=== PATIENT | female | born 1950 | race Caucasian/White ===

== ENCOUNTER 2019-11-04 09:09 | Outpatient (CLI) | payer MEDICARE, SELFPAY ==
--- NOTE | ~2019-11-04 | XR_ITS ---
EXAMINATION: XR abdomen/kub 1V DATE: 11/04/2019 09:32 INDICATION: Hydronephrosis with renal and ureteral calculus obstruction. TECHNIQUE: A supine view of the abdomen was obtained. COMPARISON: CT abdomen and pelvis 10/13/2018, abdomen radiograph 05/25/2019 FINDINGS: There are no dilated loops of bowel. There are phleboliths in the pelvis. IMPRESSION: 1. No visible nephrolithiasis. Reviewed, dictated and finalized at location A. RDS OFFICER
== END 2019-11-04 09:10 | disposition home or self-care (01) ==
LOC: ANHIMG 09:16
PROVIDERS: PCP Pediatrics; Visit Provider Urology
DX: N13.2 Hydronephrosis with renal and ureteral calculous obstruction (principal)
CPT/HCPCS: 74018

== ENCOUNTER 2019-11-08 17:38 | Inpatient (IN) | payer MEDICARE, SELFPAY ==
--- NOTE | ~2019-11-08 | XR_ITS ---
EXAMINATION: XR retrograde pyelo w/stent RT DATE: 11/09/2019 14:14 INDICATION: Right internal ureteral stent placement TECHNIQUE: Fluoroscopic images from a right internal ureteral stent placement are submitted for dorita yan 29 of fluoroscopy time. FINDINGS: There is a right double-J internal ureteral stent projecting in expected position, with proximal Fitzwilliam loop at the level of the renal pelvis and distal loop in the pelvis within the bladder lumen. IMPRESSION: 1. Right internal ureteral stent placement. Please refer to real-time procedural findings for detai ls. Reviewed, dictated and finalized at location A. TMENT PROPERTY MANAGER IMPRESSION: 1. Right internal ureteral stent placement. Please refer to real-time procedu ral findings for details.
--- NOTE | ~2019-11-08 | US_ITS ---
EXAMINATION: US venous doppler [facility] DATE: 11/11/2019 08:13 INDICATION: Lower limb edema. TECHNIQUE: Grayscale ultrasound images without and with compression and Doppler ultrasound images of the bilateral lower extremity veins were obtained. COMPARISON: None. FINDINGS: The visualized portions of right common femoral vein, profunda (deep) femoral vein, femoral vein, pop liteal vein, peroneal veins, posterior tibial veins, and greater saphenous vein outflow are patent. The visualized portions of left common femoral vein, profunda femoral vein, femoral vein, popliteal v ein, peroneal veins, posterior tibial veins, and greater saphenous vein outflow are patent. IMPRESSION: 1. No deep venous thrombosis. Reviewed, dictated and finalized at location A. PING MARKER
--- NOTE | ~2019-11-08 | XR_ITS ---
EXAMINATION: XR chest 1V portable DATE: 11/11/2019 05:58 INDICATION: Shortness of breath. TECHNIQUE: A single frontal view of the chest was obtained. COMPARISON: CT abdomen and pelvis 11/08/2019 FINDINGS: There is mild atelectasis at the lung bases. A calcified left lung nodule is consistent wit h old granulomatous disease. There is a small right pleural effusion. No pneumothorax. The heart size is normal. IMPRESSION: 1. Small right pleural effusion. 2. Mild atelectasis at the lung bases. Reviewed, dictated and finalized at location A. DENTIAL RECYCLE DRIVER
--- NOTE | ~2019-11-08 | NM_ITS ---
EXAMINATION: NM lung vent and perfusion EXAM DATE: 11/11/2019 14:33 INDICATION: Ventilation perfusion requested for shortness of breath. TECHNIQUE: A ventilation perfusion lung scan was performed. The patient inhaled 15.1 mCi xenon-133 w hile images were acquired. The patient was then injected with 4.8 mCi technetium 99m MAA and reimage d. There is no prior study for comparison. Correlation was made with chest x-ray same date. FINDINGS: There is homogeneous radiotracer activity throughout the lungs on the single breath ventil ation sequence. There is relatively homogeneous perfusion throughout the lungs. No discrete ventilati on and perfusion mismatch is identified. There is mild tracer retention on the washout phase portion of scan, mild air trapping. IMPRESSION: 1. No perfusion defects. 2. Mild air trapping. Reviewed, dictated and finalized at location A. UGATOR MACHINE OPERATOR
--- NOTE | 2019-11-08 16:51 | ADMGEN ---
This patient, Yoko Martinez, was admitted to 3 Med Surg Room 330-01 @ 1640. Direct admit from [place].. Patient/family oriented to hospital policies and general routines including ID bracelet, bed and alarms, visiting hours, pain management, procedures, bathroom and other care routines, personal items, smoking policy, room service/diet, and visiting hours. Valuables list has been completed. Information on how to activate the Rapid Response Team has been discussed. Patient/Family are encouraged to report perceived risks to care and to ask questions if they do not understand what they are told or what they should do.
[2019-11-08 17:00] VITALS: BMI 26.5
--- NOTE | 2019-11-08 17:45 | PM.IMHP ---
H&P: HPI History of Present Illness Chief complaint: hydroneprosis/pyelonephritis Narrative: Yoko Martinez is a 69 year old female will known to our practice and Dr. Alarcon. She is s/p right percutaoneous nephrolithotomy ~6 months ago and has a known, chronic, partial right ureteropelvic junction obstruction. She called earlier today with 2-day history of right flank pain. KUB failed to show an obvious renal/ureteral stone. Further evaluation with CT-abd/pelvis wo contrast at [facility] in [place], [place] showed right hydronephrosis without stones. She reports low-grade fever [id number] and had a temp. 100.5 in [place]. Serum WBC 15.6k. U/A was not collected at outside facility. On transfer, after a dose of IV Rocephin, she was feeling better and was afebrile. She reports nausea but denies gross hematuria or irritable voiding symptoms. Review of Systems Constitutional: Constitutional: Denies chills, Denies fatigue, Denies fever(s) and Denies headache(s) Eyes: Eyes: Denies blurry vision ENT: Denies vertigo, Denies dizziness, Denies headache(s) and Denies sore throat Cardiovascular: Cardiovascular: Denies chest pain, Denies syncope, Denies lightheadedness, Denies palpitations, Denies dyspnea and Denies dyspnea on exertion Respiratory: Respiratory: Denies hemoptysis, Denies dyspnea and Denies dyspnea on exertion Gastrointestinal: Gastrointestinal: Reports bloating, Denies diarrhea, Reports nausea and Denies vomiting Genitourinary: Genitourinary: Denies hematuria, Denies urinary frequency, Denies dysuria, Denies urinary hesitancy and Denies urinary urgency Integumentary/Breasts: Skin/Breast: Denies pruritus, Denies lesions and Denies rash Neurologic: Denies confusion, Denies vertigo, Denies dizziness, Denies syncope and Denies headache(s) Psychiatric: Psychiatric: Denies anxiety, Denies change in appetite and Denies confusion Endocrine: Endocrine: Denies fatigue and Denies palpitations [facility] Family History Family History Sibling Leukemia Sibling Colon cancer Social History Social History Smoking packs per day: 1 Smoking cigarettes per day: 20.0 Smoking status: Former smoker Tobacco type: cigarettes Alcohol intake: never Substance use: never Gender identity (if verbalized by the patient): Female Spiritual care concerns: No Agree to blood products: No Meds Home Medications and Allergies Allergies Allergy/AdvReac Type Severity Reaction Status Date / Time Penicillins Allergy Mild UNKNOWN Unverified 01/03/09 14:04 CONTRAST DYE Allergy Mild SEVERE Uncoded 12/10/06 12:42 NAUSEA Exam Const: General: healthy appearing, comfortable, no acute distress and well developed; No confusion Nutritional Appearance: well nourished Orientation/consciousness: patient oriented x3 and No confusion HENMT: Head: normocephalic and atraumatic Ears: external ears normal Face and sinus: normal facial exam Mouth: Yes lip normal Teeth and gingiva: dentition normal Eyes: General: appearance normal, both eyes and all related structures Alignment and Position: alignment normal Eyelids: eyelids normal Cornea: corneas normal Pupils: Equal, round and reactive pupils present EOM: EOMs intact bilaterally Neck: Neck: normal visual inspection, full ROM and no JVD Chest: Chest palpation & inspection: normal inspection of the chest Resp: Effort & Inspection: normal respiratory effort and no use of accessory muscles Auscultation: clear to auscultation bilaterally Cardio: Jugular venous distension: no JVD Rate: regular rate Rhythm: regular rhythm GI: Inspection: normal to inspection GI Palp: No abdominal tenderness, No Guarding due to palpation present (GI) and No Rebound tenderness present Auscultation: normal bowel sounds : General: Yes bladder normal to palpation and No CVA tenderness Bimanual exam- vagina & uterus: bladder normal
[2019-11-08] MEDS: ONDANSETRON INJ 4 MG/2 ML VIAL IV PUSH ×2 (18:20→20:54)
[2019-11-08] MEDS: DEXTROSE 5%/0.9% SOD CHL 1,000 ML 125 ML IV CONT (18:23)
[2019-11-08] MEDS: MORPHINE SULFATE 2 MG/ML INJ IV PUSH ×2 (18:26→21:49)
[2019-11-08 22:00] VITALS: BP 141/72; PULSE 74; RESP 16; TEMP 36.9; O2SAT 95
[2019-11-09] VITALS (11 sets, daily range): BP systolic 114–141; BP diastolic 53–74; PULSE 49–83; RESP 12–20; TEMP 36.3–37.9; O2SAT 90–100
[2019-11-09] MEDS: ONDANSETRON INJ 4 MG/2 ML VIAL IV PUSH (01:46)
[2019-11-09] MEDS: MORPHINE SULFATE 2 MG/ML INJ IV PUSH ×3 (01:46→10:42)
[2019-11-09 02:14] LABS: Add Urine Microscopic? YES; Appearance Urine Cloudy (Clear); Bilirubin Urine Negative (Negative); Blood Urine 2+ (Negative); Color Urine Yellow (Yellow); Glucose Urine UA 1+ mg/dL (Negative); Ketones Urine 1+ mg/dL (Negative); Leukocyte Esterase Ur 3+ LEU/UL (NEGATIVE); Nitrate Urine Negative (Negative); Protein Urine 2+ mg/dL (Negative); Specific Grav Ur 1.023 (1.001-1.035); Squamous Epithelial Cell Urine Occasional /hpf (Few); Urobilinogen Urine Negative mg/dL (<2.0); WBC Urine >75 /hpf (0-3)
[2019-11-09 02:29] LABS: Basophils Percent Auto 0.3 % (0.2-1.2); Hemoglobin 11.4 g/dL (12.0-15.0); Immature Granulocyte Absolute 0.06 K/mm3 (0.00-0.031); Immature Granulocyte Percent A 0.5 % (0-0.5); Lymphocytes Percent Auto 3.6 % (18.3-44.2); Mean Corpuscular HGB Conc 32.6 g/dl (32-36); Mean Corpuscular Hemoglobin 27.1 pg (26-34); Mean Corpuscular Volume 83.1 fl (80-100); Mean Platelet Volume 9.3 fl (7.4-10.4); Monocytes Absolute Auto 0.9 K/mm3 (0.1-0.6); Monocytes Percent Auto 8.5 % (2.6-8.5); Neutrophils Absolute Auto 9.6 K/mm3 (1.3-6.7); Neutrophils Percent Auto 87.1 % (45.5-73.1); Platelet Count Result 186 k/mm3 (150-375); Red Blood Count 4.21 M/mm3 (4.2-5.4); Red Cell Distribution Width 14.4 % (11.5-14.5)
[2019-11-09 02:33] LABS: Blood Urea Nitrogen 32 mg/dL (7-17); Carbon Dioxide 24 mmol/L (22-30); Chloride 102 mmol/L (98-107); Estimated CRCL calculation 30 ml/min; Estimated Glomerular Filt Rate 37; Glucose 209 mg/dL (65-105); Potassium 3.7 mmol/L (3.4-5.0); Sodium 137 mmol/L (137-145)
[2019-11-09] MEDS: DEXTROSE 5%/0.9% SOD CHL 1,000 ML 125 ML IV CONT ×3 (04:15→22:00)
--- NOTE | 2019-11-09 12:53 | WPDUROPN2 ---
Progress Note: A&P Assessment and Plan (1) Pyelonephritis of right kidney: Code(s): N12 - Tubulo-interstitial nephritis, not specified as acute or chronic Status: Acute (2) UPJ (ureteropelvic junction) obstruction: Code(s): N13.5 - Crossing vessel and stricture of ureter without hydronephrosis Status: Acute Assessment and Plan: - continue Hydration - IV Rocephin. await final cultures - As pt with persistent pain. Will proceed with Cystoscopy, right stent placement today - Consider possible pyeloplasty [id number]. Further evaluation and consideration after treatment of acute condition. Subjective Subjective Date/Time Seen: 11/09/19 12:53 Principal diagnosis: right flank pain Interval history: Pt with continued pain overnight, no fever or chills Review of Systems Review of Systems: All systems reviewed & are unremarkable except as noted in HPI and below Exam Const: General: no acute distress Eyes: General: appearance normal, both eyes and all related structures Resp: Auscultation: clear to auscultation bilaterally : Other: mild right CVA tenderness Objective Data Vital Signs Vital Signs: Vital Signs - 24 hr 11/08/19 22:00 11/09/19 05:59 Temperature 36.9 C 36.9 C Pulse Rate 74 78 Respiratory Rate 16 18 Blood Pressure 141/72 H 119/54 L Pulse Oximetry 95 92 Intake/Output Intake/Output: Intake & Output 11/06/19 11/07/19 11/08/19 11/09/19 23:59 23:59 23:59 23:59 Intake Total 120 2250 Output Total 500 Balance 120 1750 Meds/Results Medications: Active Medications Generic Name Dose Route Start Last Admin Trade Name Freq PRN Reason Stop Dose Admin Docusate Sodium 100 mg 11/09/19 09:00 11/09/19 12:25 Colace Capsule PO Not Given BID ASHLEY Dextrose/Sodium Chloride 1,000 mls @ 125 mls/hr 11/08/19 17:40 11/09/19 12:23 Dextrose 5% Sodium Chloride 0.9% IV CONT 125 mls/hr .Q8H ASHLEY Administration Ceftriaxone Sodium/Dextrose 1 gm in 50 mls @ 100 mls/hr 11/09/19 14:00 Rocephin 1 Gm/D5w 50 Ml IVPB Q24H ASHLEY Lactated Ringer's 1,000 mls @ 30 mls/hr 11/09/19 07:15 Lr - Lactated Ringers Iv IV CONT .Q24H ASHLEY Ketorolac Tromethamine 15 mg 11/08/19 17:44 Toradol Inj IV PUSH Q6H PRN Pain Rated 4-6 Morphine Sulfate 2 mg 11/08/19 17:38 11/09/19 10:42 Morphine Sulfate Inj IV PUSH 2 mg Q4H PRN Administration Pain Rated 7-10 Ondansetron HCl 4 mg 11/08/19 17:38 11/09/19 01:46 Zofran Inj IV PUSH 4 mg Q6H PRN Administration Nausea And Vomiting Labs Labs: Laboratory Results - last 24 hr 11/09/19 11/09/19 11/09/19 01:43 02:13 02:13 WBC 11.0 H RBC 4.21 Hgb 11.4 L Hct 35.0 L MCV 83.1 MCH 27.1 MCHC 32.6 RDW 14.4 Plt Count 186 MPV 9.3 Immature Gran % (Auto) 0.5 Neut % (Auto) 87.1 H Lymph % (Auto) 3.6 L [place] % (Auto) 8.5 Eos % (Auto) 0.0 Baso % (Auto) 0.3 Lymph # (Auto) 0.40 L [place] # (Auto) 0.9 H Eos # (Auto) 0.0 Baso # (Auto) 0.0 Abs Immat Gran (auto) 0.06 H Absolute Neuts (auto) 9.6 H Absolute Nucleated RBC 0.0 Nucleated RBC % 0.0 Sodium 137 Potassium 3.7 Chloride 102 Carbon Dioxide 24 BUN 32 H Creatinine 1.40 H Estim Creat Clear Calc 30 Estimated GFR 37 L Glucose 209 H Calcium 8.0 L Urine Color Yellow Urine Appearance Cloudy H Urine pH 6.0 Ur Specific [place] 1.023 Urine Protein 2+ H Urine Glucose (UA) 1+ H Urine Ketones 1+ H Ur Blood (Man) 2+ H Urine Nitrate Negative Urine Bilirubin Negative Urine Urobilinogen Negative Ur Leukocyte Esterase 3+ H Urine RBC 6-10 H Urine WBC >75 H Ur Squamous Epith Cells Occasional
--- NOTE | 2019-11-09 13:03 | PC.NURSE ---
Pt to pre-op per stretcher.
--- NOTE | 2019-11-09 13:25 | WPDANESEPPF ---
Anes - Initial Pre Proc Eval Procedure: Operation Date: 11/09/19 15:30 Proposed Procedures p Cystoscopy, Right Stent Placement(Right) - Yara Alarcon MD Date/Time: 11/09/19 13:25 Surgeon: Alexis Fried MD Pre Op Diagnosis: Right hydronephrosis Patient Data Age: 69 Gender: F Height: 5 ft 4 in Weight: 70.2 kg Last Vital Signs Temp 36.9 C 11/09/19 05:59 Pulse 78 11/09/19 05:59 Resp 18 11/09/19 05:59 BP 119/54 L 11/09/19 05:59 Pulse Ox 92 11/09/19 05:59 Allergies Allergy/AdvReac Type Severity Reaction Status Date / Time Penicillins Allergy Unknown UNKNOWN Verified 11/08/19 18:34 CONTRAST DYE Allergy Mild SEVERE Uncoded 12/10/06 12:42 NAUSEA Home Medications Medication Instructions Recorded Confirmed Type clopidogrel 75 mg QMWFSU 11/08/19 11/08/19 History levothyroxine 50 mcg PO BID 11/08/19 11/08/19 History lisinopril 10 mg PO BID 11/08/19 11/08/19 History metoprolol succinate 50 mg PO BID 11/08/19 11/08/19 History simvastatin 80 mg PO DAILY 11/08/19 11/08/19 History Laboratory Tests 11/09/19 11/09/19 11/09/19 01:43 02:13 02:13 WBC 11.0 K/mm3 H K/mm3 (4.5-10.0) RBC 4.21 M/mm3 M/mm3 (4.2-5.4) Hgb 11.4 g/dL L g/dL (12.0-15.0) Hct 35.0 % L % (37.0-47.0) MCV 83.1 fl fl (80-100) MCH 27.1 pg pg (26-34) MCHC 32.6 g/dl g/dl (32-36) RDW 14.4 % % (11.5-14.5) Plt Count 186 k/mm3 k/mm3 (150-375) MPV 9.3 fl fl (7.4-10.4) Immature Gran % (Auto) 0.5 % % (0-0.5) Neut % (Auto) 87.1 % H % (45.5-73.1) Lymph % (Auto) 3.6 % L % (18.3-44.2) [place] % (Auto) 8.5 % % (2.6-8.5) Eos % (Auto) 0.0 % % (0-4.4) Baso % (Auto) 0.3 % % (0.2-1.2) Lymph # (Auto) 0.40 K/mm3 L K/mm3 (0.9-3.2) [place] # (Auto) 0.9 K/mm3 H K/mm3 (0.1-0.6) Eos # (Auto) 0.0 K/mm3 K/mm3 (0-0.3) Baso # (Auto) 0.0 K/mm3 K/mm3 (0.0-0.1) Abs Immat Gran (auto) 0.06 K/mm3 H K/mm3 (0.00-0.031) Absolute Neuts (auto) 9.6 K/mm3 H K/mm3 (1.3-6.7) Absolute Nucleated RBC 0.0 K/mm3 K/mm3 (0.0-0.012) Nucleated RBC % 0.0 % % (0.0-0.2) Sodium 137 mmol/L mmol/L (137-145) Potassium 3.7 mmol/L mmol/L (3.4-5.0) Chloride 102 mmol/L mmol/L (98-107) Carbon Dioxide 24 mmol/L mmol/L (22-30) BUN 32 mg/dL H mg/dL (7-17) Creatinine 1.40 mg/dL H mg/dL (0.7-1.0) Estim Creat Clear Calc 30 ml/min ml/min Estimated GFR 37 L (59 - ) Glucose 209 mg/dL H mg/dL (65-105) Calcium 8.0 mg/dL L mg/dL (8.4-10.2) Urine Color Yellow (Yellow) Urine Appearance Cloudy H (Clear) Urine pH 6.0 (5.0-9.0) Ur Specific [place] 1.023 (1.001-1.035) Urine Protein 2+ mg/dL H mg/dL (Negative) Urine Glucose (UA) 1+ mg/dL H mg/dL (Negative) Urine Ketones 1+ mg/dL H mg/dL (Negative) Ur Blood (Man) 2+ H (Negative) Urine Nitrate Negative (Negative) Urine Bilirubin Negative (Negative) Urine Urobilinogen Negative mg/dL mg/dL (<2.0) Ur Leukocyte Esterase 3+ GOLDEN/UL H GOLDEN/UL (NEGATIVE) Urine RBC 6-10 /hpf H /hpf (0-2) Urine WBC >75 /hpf H /hpf (0-3) Ur Squamous Epith Cells Occasional /hpf /hpf (Few) Patient hx anesthesia problems: post op nausea/vomiting Family hx anesthesia problems: post op nausea/vomiting [facility] Past Medical History Medical History CAD (coronary artery disease) DVT (deep venous thrombosis) GERD (gastroesophageal reflux disease) Hyperlipidemia Hypertension Hypothyroid Surgical History Surgical History (Reviewed 11/09/19 @ 13:26 by Jacob
[2019-11-09] MEDS: LIDOCAINE HCL 2% GEL UROJET 10 ML PKG MUCOUS MEM (14:10)
[2019-11-09] MEDS: LACTATED RINGERS 1,000 ML 30 ML IV CONT ×2 (14:21)
--- NOTE | 2019-11-09 14:54 | SUR.PHASEI ---
1454 - no family available at this time for update
--- NOTE | 2019-11-09 15:17 | PC.NURSE ---
Pt returned from Post OP per bed.
[2019-11-09] MEDS: SIMVASTATIN 20 MG TABLET 80 MG PO (15:46)
--- NOTE | 2019-11-09 15:52 | OP_ITS ---
DATE OF PROCEDURE: 11/08/2019 PREOPERATIVE DIAGNOSES: 1. Right UPJ obstruction. 2. Urinary tract infection/pyelonephritis. POSTOPERATIVE DIAGNOSES: 1. Right UPJ obstruction. 2. Urinary tract infection/pyelonephritis. PROCEDURE PERFORMED: 1. Cystoscopy. 2. Right retrograde pyelogram. 3. Right ureteral stent insertion. 4. Nicolas catheter insertion. DESCRIPTION OF PROCEDURE: Informed consent was obtained. The patient was taken to the operating room, given preoperative IV antibiotics. She was induced anesthesia. She was prepped and draped in a normal sterile fashion in the dorsal lithotomy position. A 22-[place] cystoscope was inserted through the urethra into the bladder. Inspection of bladder revealed changes consistent with known urinary tract infection. There were no tumors noted. The patient has bilateral orthotopic ureteral orifices. We cannulated the right ureteral orifice with a 5-[place] angiographic catheter. A retrograde pyelogram was performed that showed a delicate ureter up to the UPJ, then transitioned to severe right hydronephrosis. I was able to pass a wire into the right renal pelvis and then, over the wire, we passed a 4.8-[place] variable length stent with a curl in the renal pelvis and curl in the bladder. There was return of purulent-appearing urine. A Nicolas catheter was inserted to allow for maximal urinary drainage. The patient was awakened, taken to the recovery room in stable condition. IV FLUIDS: Per Anesthesia. COMPLICATIONS: None. ESTIMATED BLOOD LOSS: Minimal. FOLLOWUP: The patient will remain in the hospital for continued IV antibiotics. We will consider long-term management of right UPJ obstruction after acute issues have been referred. Lawanda I MT: Robby
[2019-11-09] MEDS: DOCUSATE SODIUM 100 MG CAPSULE PO (16:43)
[2019-11-09] MEDS: lisinopriL 10 MG TABLET PO (16:43)
[2019-11-09] MEDS: METOPROLOL SUCCINATE EXT REL 50 MG TABCR PO (21:58)
[2019-11-10] VITALS (7 sets, daily range): BP systolic 132–149; BP diastolic 61–91; PULSE 48–61; RESP 16–18; TEMP 36.4–36.9; O2SAT 96–98
[2019-11-10] MEDS: LEVOTHYROXINE SODIUM 50 MCG TABLET PO (06:27)
[2019-11-10] MEDS: DEXTROSE 5%/0.9% SOD CHL 1,000 ML 125 ML IV CONT ×3 (06:27→22:53)
--- NOTE | 2019-11-10 07:04 | WPDUROPN2 ---
Progress Note: A&P Assessment and Plan (1) Pyelonephritis of right kidney: Code(s): N12 - Tubulo-interstitial nephritis, not specified as acute or chronic Status: Acute (2) UPJ (ureteropelvic junction) obstruction: Code(s): N13.5 - Crossing vessel and stricture of ureter without hydronephrosis Status: Acute Assessment and Plan: Feeling much better following stent placement. Continue Rocephin pending cultures (will check with Priya later today to see if they've got any results). Subjective Subjective Date/Time Seen: 11/10/19 07:04 Feeling MUCH better following stent placement. Review of Systems Cardiovascular: Cardiovascular: Denies chest pain, Denies lightheadedness, Denies palpitations and Denies dyspnea Respiratory: Respiratory: Denies dyspnea Gastrointestinal: Gastrointestinal: Denies diarrhea, Denies nausea and Denies vomiting Genitourinary: Genitourinary: Denies hematuria and Denies dysuria Endocrine: Endocrine: Denies palpitations Exam Const: General: no acute distress Resp: Effort & Inspection: normal respiratory effort GI: Inspection: non-distended GI Palp: No abdominal tenderness and No Guarding due to palpation present (GI) Auscultation: normal bowel sounds Objective Data Vital Signs Vital Signs: Vital Signs - 24 hr 11/09/19 13:32 11/09/19 14:21 11/09/19 14:35 Temperature 99.9 F H 100.2 F H Pulse Rate 74 83 76 Respiratory Rate 20 17 12 Blood Pressure 141/74 H 114/57 L 118/62 Pulse Oximetry 95 100 100 11/09/19 14:45 11/09/19 15:00 11/09/19 15:20 Temperature 98.3 F 98.1 F Pulse Rate 76 73 73 Respiratory Rate 20 20 16 Blood Pressure 133/59 L 137/68 121/63 Pulse Oximetry 94 96 93 11/09/19 15:50 11/09/19 16:48 11/09/19 21:58 Temperature 98.0 F Pulse Rate 77 68 68 Respiratory Rate 17 17 Blood Pressure 115/53 L 119/66 Pulse Oximetry 95 94 11/09/19 22:00 11/10/19 02:00 11/10/19 06:00 Temperature 97.4 F L 97.6 F 97.8 F Pulse Rate 49 L 48 L 51 L Respiratory Rate 16 18 16 Blood Pressure 124/60 132/91 H 149/67 H Pulse Oximetry 90 96 97 Intake/Output Intake/Output: Intake & Output 11/07/19 11/08/19 11/09/19 11/10/19 23:59 23:59 23:59 23:59 Intake Total 120 3550 1250 Output Total 1035 1300 Balance 120 2515 -50 Meds/Results Medications: Active Medications Generic Name Dose Route Start Last Admin Trade Name Freq PRN Reason Stop Dose Admin Hydrocodone Bitart/Acetaminophen 1 tab 11/09/19 15:09 [place] 5-325 Mg PO Q4H PRN Pain Rated 4-6 Artificial Tears 1 drop 11/09/19 18:29 11/10/19 06:29 Artificial Tears EACH EYE 1 drop QID PRN Administration Dry Eye(s) Clopidogrel Bisulfate 75 mg 11/11/19 09:00 Plavix BY MOUTH [id number] ASHLEY Docusate Sodium 100 mg 11/09/19 09:00 11/09/19 16:43 Colace Capsule PO 100 mg BID ASHLEY Administration Dextrose/Sodium Chloride 1,000 mls @ 125 mls/hr 11/08/19 17:40 11/10/19 06:27 Dextrose 5% Sodium Chloride 0.9% IV CONT 125 mls/hr .Q8H ASHLEY Administration Ceftriaxone Sodium/Dextrose 1 gm in 50 mls @ 100 mls/hr 11/09/19 14:00 11/09/19 13:48 Rocephin 1 Gm/D5w 50 Ml IVPB 100 mls/hr Q24H ASHLEY Administration Levothyroxine Sodium 50 mcg 11/10/19 06:30 11/10/19 06:27 Synthroid PO 50 mcg DAILY@0630 ASHLEY Administration Lisinopril 10 mg 11/09/19 17:00 11/09/19 16:43 Prinivil PO 10 mg BID ASHLEY Administration Metoprolol Succinate 50 mg 11/09/19 21:00 11/09/19 21:58 Toprol Xl PO 50 mg Q12HR ASHLEY Administration Oxybutynin Chloride 5 mg 11/09/19 15:09 Ditropan PO TID PRN Bladder Spasm Simvastatin 80 mg 11/09/19 15:15 11/09/19 15:46 Zocor PO 80 mg DAILY ASHLEY Administration Radiology Results: ITS Impressions Retrograde Pyelogram 11/09/19 15:18 IMPRESSION: 1. Right internal ureteral stent placement. Please refer to real-time procedural findings for de
[2019-11-10] MEDS: SIMVASTATIN 20 MG TABLET 80 MG PO (08:11)
[2019-11-10] MEDS: METOPROLOL SUCCINATE EXT REL 50 MG TABCR PO ×2 (08:11→21:50)
[2019-11-10] MEDS: lisinopriL 10 MG TABLET PO ×2 (08:11→17:23)
[2019-11-10] MEDS: DOCUSATE SODIUM 100 MG CAPSULE PO ×2 (08:11→17:23)
[2019-11-11] VITALS (12 sets, daily range): BP systolic 133–187; BP diastolic 64–85; PULSE 54–65; RESP 16–24; TEMP 36.6–36.9; O2SAT 92–100
--- NOTE | 2019-11-11 | ECHO_ITS ---
Patient Info Name: Yoko Martinez Age: 69 years : 1950 Gender: Female Ht: 64 in Wt: 154 lbs BSA: 1.79 m2 HR: 63 bpm BP: 161 / 83 mmHg Technical Quality: Good Exam Date: 11/11/2019 3:40 PM Exam Location: [facility] Pulmonary Exam Room: [facility] Patient Status: Inpatient Admit Date: 11/08/2019 Staff Ordering Physician: Keyshawn Arredondo MD Assistant Case Manager: Aisha Suarez RDCS Attending Provider: Keyshawn Arredondo MD Exam Type: CA echo doppler color flow Study Info Indications - sob Complete two-dimensional, color flow and Doppler transthoracic echocardiogram is performed. Summary 1. Left ventricular chamber dimension is normal. 2. Left ventricular systolic function is normal, estimated at 60-65%. 3. The left ventricular diastolic function is abnormal. 4. E/e' 16 is elevated. 5. Left atrial chamber dimension is mildly enlarged. 6. There is mild mitral valve regurgitation. 7. No pulmonary hypertension, estimated pulmonary arterial systolic pressure is 18 mmHg. Left Ventricle E/e' 16 is elevated. Left ventricular chamber dimension is normal. Left ventricular systolic function is normal, estimated at 60-65%. The left ventricular diastolic function is abnormal. Right Ventricle Right ventricular chamber dimension is normal. Right ventricular systolic function is normal. Left Atria Left atrial chamber dimension is mildly enlarged. Right Atria Right atrial chamber dimension is normal. Aortic Valve The aortic valve is probable trileaflet. There is no aortic valve stenosis. There is no aortic valve regurgitation. Pulmonic Valve There is no pulmonic regurgitation. Mitral Valve There is no mitral valve stenosis. There is mild mitral valve regurgitation. Tricuspid Valve There is no tricuspid valve regurgitation. No pulmonary hypertension, estimated pulmonary arterial systolic pressure is 18 mmHg. Pericardium/Pleural There is no pericardial effusion. Inferior Vena Cava Normal inferior vena cava with >50% collapse upon inspiration consistent with normal right atrial pressure, 5 mmHg. Aorta The aortic root size at the sinus of Valsalva is normal. Left Ventricular Outflow Tract Name Value Normal LVOT 2D LVOT Diameter 2.0 cm LVOT Doppler LVOT Peak Gradient 5 mmHg LVOT Mean Gradient 3 mmHg LVOT VTI 24 cm LVOT VTI/AV VTI Ratio 0.9 LVOT Stroke Volume 75 ml LVOT CO 14.9 l/min LVOT CI 8.3 l/min/m2 Pulmonic Valve Name Value Normal PV Doppler PV Peak Gradient 3 mmHg Mitral Valve Name Value
[2019-11-11] MEDS: LEVOTHYROXINE SODIUM 50 MCG TABLET PO (05:40)
[2019-11-11] MEDS: ALBUTEROL SULFATE NEB 2.5 MG/0.5 ML INH INHALATION (05:50)
[2019-11-11 05:54] LABS: Basophils Percent Auto 0.4 % (0.2-1.2); Eosinophils Absolute Auto 0.1 K/mm3 (0-0.3); Hematocrit 34.7 % (37.0-47.0); Immature Granulocyte Absolute 0.09 K/mm3 (0.00-0.031); Immature Granulocyte Percent A 0.8 % (0-0.5); Lymphocytes Absolute Auto 0.67 K/mm3 (0.9-3.2); Lymphocytes Percent Auto 6.1 % (18.3-44.2); Mean Corpuscular HGB Conc 31.7 g/dl (32-36); Mean Corpuscular Hemoglobin 26.9 pg (26-34); Mean Corpuscular Volume 84.8 fl (80-100); Mean Platelet Volume 9.2 fl (7.4-10.4); Monocytes Absolute Auto 0.8 K/mm3 (0.1-0.6); Monocytes Percent Auto 7.2 % (2.6-8.5); Neutrophils Absolute Auto 9.2 K/mm3 (1.3-6.7); Neutrophils Percent Auto 84.5 % (45.5-73.1); Platelet Count Result 247 k/mm3 (150-375); Red Blood Count 4.09 M/mm3 (4.2-5.4); White Blood Count 10.9 K/mm3 (4.5-10.0)
[2019-11-11 06:07] LABS: Blood Urea Nitrogen 15 mg/dL (7-17); Calcium 8.5 mg/dL (8.4-10.2); Carbon Dioxide 23 mmol/L (22-30); Chloride 107 mmol/L (98-107); Estimated CRCL calculation 51 ml/min; Estimated Glomerular Filt Rate > 60; Glucose 101 mg/dL (65-105); Potassium 3.7 mmol/L (3.4-5.0); Sodium 143 mmol/L (137-145)
[2019-11-11 06:15] LABS: NT Pro B Type Natriuretic Pept 4140 PG/ML (5-100)
--- NOTE | 2019-11-11 07:27 | WPDUROPN2 ---
Progress Note: A&P Assessment and Plan (1) Pyelonephritis of right kidney: Code(s): N12 - Tubulo-interstitial nephritis, not specified as acute or chronic Status: Acute (2) UPJ (ureteropelvic junction) obstruction: Code(s): N13.5 - Crossing vessel and stricture of ureter without hydronephrosis Status: Acute Assessment and Plan: Outside lab ([facility]) blood cultures x2 growing gram neg. rods. As of this morning no further ID/sensitivities. Acute SOB this morning of unclear etiology. CXR shows minimal pleural effusion and atelectesis. Will get LE venous doppler to exclude DVT. LE exam is unremarkable. Pt. allergic to contrast so CTA-chest would require steroid prep. Hospitalists consulted. Subjective Subjective Date/Time Seen: 11/11/19 07:27 Acute shortness of breath earlier this morning - now feeling better. Review of Systems Cardiovascular: Cardiovascular: Denies chest pain, Denies lightheadedness, Denies palpitations and Denies dyspnea Respiratory: Respiratory: Denies dyspnea Gastrointestinal: Gastrointestinal: Denies diarrhea, Denies nausea and Denies vomiting Genitourinary: Genitourinary: Denies hematuria and Denies dysuria Endocrine: Endocrine: Denies palpitations Exam Const: General: no acute distress Resp: Effort & Inspection: normal respiratory effort GI: Inspection: non-distended GI Palp: No abdominal tenderness and No Guarding due to palpation present (GI) Auscultation: normal bowel sounds Extrem: General: clubbing, cyanosis or edema noted and pedal edema present Objective Data Vital Signs Vital Signs: Vital Signs - 24 hr 11/10/19 08:11 11/10/19 10:00 11/10/19 14:00 Temperature 98.3 F 98.4 F Pulse Rate 60 61 48 L Respiratory Rate 18 17 Blood Pressure 138/61 147/63 H Pulse Oximetry 97 98 11/10/19 21:50 11/10/19 22:00 11/11/19 04:35 Temperature 98.3 F 98.3 F Pulse Rate 56 L 52 L 65 Respiratory Rate 16 24 H Blood Pressure 142/65 H 187/85 H Pulse Oximetry 98 98 11/11/19 04:40 11/11/19 05:55 11/11/19 05:58 Temperature Pulse Rate 65 Respiratory Rate 24 H 18 Blood Pressure 175/81 H Pulse Oximetry 96 96 11/11/19 06:00 11/11/19 06:06 Temperature 98.4 F Pulse Rate 63 61 Respiratory Rate 18 16 Blood Pressure 161/83 H Pulse Oximetry 99 Intake/Output Intake/Output: Intake & Output 11/08/19 11/09/19 11/10/19 11/11/19 23:59 23:59 23:59 23:59 Intake Total 120 3600 3540 300 Output Total 1035 1300 750 Balance 120 2565 2240 -450 Meds/Results Medications: Active Medications Generic Name Dose Route Start Last Admin Trade Name Freq PRN Reason Stop Dose Admin Hydrocodone Bitart/Acetaminophen 1 tab 11/09/19 15:09 11/10/19 23:53 Stella 5-325 Mg PO 1 tab Q4H PRN Administration Pain Rated 4-6 Albuterol 2.5 mg 11/11/19 05:25 Albuterol Sulf Neb 2.5mg/0.5ml INHALATION Q6HRT PRN Shortness Of Breath Artificial Tears 1 drop 11/09/19 18:29 11/10/19 06:29 Artificial Tears EACH EYE 1 drop QID PRN Administration Dry Eye(s) Clopidogrel Bisulfate 75 mg 11/11/19 09:00 Plavix BY MOUTH [id number]@[id number] ASHLEY Docusate Sodium 100 mg 11/09/19 09:00 11/10/19 17:23 Colace Capsule PO 100 mg BID ASHLEY Administration Dextrose/Sodium Chloride 1,000 mls @ 125 mls/hr 11/08/19 17:40 11/11/19 05:00 Dextrose 5% Sodium Chloride 0.9% IV CONT 125 mls/hr .Q8H ASHLEY Administration Ceftriaxone Sodium/Dextrose 1 gm in 50 mls @ 100 mls/hr 11/09/19 14:00 11/10/19 15:42 Rocephin 1 Gm/D5w 50 Ml IVPB Infused Q24H ASHLEY Infusion Levothyroxine Sodium 50 mcg 11/10/19 06:30 11/11/19 05:40 Synthroid PO 50 mcg DAILY@0630 ASHLEY Administration Lisinopril 10 mg 11/09/19 17:00 11/10/19 17:23 Prinivil PO 10 mg BID ASHLEY Administration Metoprolol Succinate 50 mg 11/09/19 21:00 11/10/19 21:50 Toprol Xl PO 50 mg Q12HR ASHLEY Adminis
--- NOTE | 2019-11-11 07:33 | PM.IMCN ---
Assessment and Plan Assessment and plan (1) Dyspnea: Code(s): R06.00 - Dyspnea, unspecified Status: Acute (2) Pyelonephritis of right kidney: Code(s): N12 - Tubulo-interstitial nephritis, not specified as acute or chronic Status: Acute (3) Hypertension: Code(s): I10 - Essential (primary) hypertension Status: Acute (4) CAD (coronary artery disease): Code(s): I25.10 - Atherosclerotic heart disease of [place] coronary artery without angina pectoris Status: Acute (5) UPJ (ureteropelvic junction) obstruction: Code(s): N13.5 - Crossing vessel and stricture of ureter without hydronephrosis Status: Acute (6) Hypothyroid: Code(s): E03.9 - Hypothyroidism, unspecified Status: Acute (7) Hyperglycemia: Code(s): R73.9 - Hyperglycemia, unspecified Status: Acute (8) CASI (acute kidney injury): Code(s): N17.9 - Acute kidney failure, unspecified Status: Acute Additional Plan Etiology unclear but related to mild fluid overload. BNP 4140. Positive fluid balance noted. Will stop IV fluids. Consider new onset AFib. Will check EKG and place on telemetry. She has a history of DVT and as such she warrants a CTA. If CTA of the chest is normal, will treat with Lasix. Check echocardiogram. Glucose was 209 on admission but could be stress response. Will add A1c with next blood draw. Will continue to follow along with you. May need medication adjustment given hypertension but this may be related also to fluid overload. Thank you so much for allowing me part of this patient's care. EKG showing NSR. Echo with EF 60-65% with diastolic dysfunction. VQ scan normal. Susggest SOB related to fluid overload. IV fluids stopped. Lasix IV once. HPI Data of Consult Consult date: 11/11/19 Requesting Physician: Yoshi Arredondo MD Primary Care Provider: Chucky RichardsMD Consult Narrative Narrative: Yoko Martinez is a 69 year old female here for right pyelonephritis who we were asked to consult for complaint of SOB. Patient admitted November 08 for fever and right flank pain from [facility]. CT scan showed right hydronephrosis without nephrolithiasis. Patient taken to the OR on November 09 and had right ureteral stent placed. Patient was requiring morphine regularly prior to the stent placement but nothing since. Yesterday, patient developed increasing shortness of breath. She denies any chest pain. She denies any pleuritic chest pain. She denies any calf pain. She denies any cough. She does have dyspnea on exertion. She also mentions that she was having hallucinations yesterday that patient feels was related to a medication. She also complained of headache yesterday. She feels bloated. She has no asthma, emphysema or sleep apnea history. She is an ex-smoker with a 40 pack year history but quit 10 years ago. Today, patient still with shortness of breath but better with the supplemental oxygen. Lower extremity venous Dopplers negative for DVT. Chest x-ray was reviewed showing small right pleural effusion and mild atelectasis. She had a normal stress test in April 2019. Review of Systems Review of Systems: All systems reviewed & are unremarkable except as noted in HPI and below PMFSH Past Medical History Medical History (Updated 11/11/19 @ 11:17 by Keyshawn Arredondo MD) CAD (coronary artery disease) [place] with stent x2 in 1995 and stentx1 in 2002 DVT (deep venous thrombosis) GERD (gastroesophageal reflux disease) Hyperlipidemia Hypertension Hypothyroid Nephrolithiasis Rt 1996 and in 2006 Surgical History Surgical History (Updated 11/11/19 @ 07:37 by Keyshawn Arredondo MD) H/O Spinal surgery 1989 for herniated discs History of appendectomy History of bilateral tubal ligation 1977 Stented coronary artery Family History Family History Sibling Le
[2019-11-11] MEDS: METOPROLOL SUCCINATE EXT REL 50 MG TABCR PO ×2 (09:01→21:05)
[2019-11-11] MEDS: lisinopriL 10 MG TABLET PO ×2 (09:01→17:25)
[2019-11-11] MEDS: CLOPIDOGREL BISULFATE 75 MG TABLET BY MOUTH (09:01)
[2019-11-11] MEDS: DOCUSATE SODIUM 100 MG CAPSULE PO ×2 (09:01→17:26)
[2019-11-11] MEDS: SIMVASTATIN 20 MG TABLET 80 MG PO (09:02)
--- NOTE | 2019-11-11 11:17 | ECG_ITS ---
Measurements Intervals Ute Rate: 62 P: 23 OH: 157 QRS: 19 QRSD: 82 T: 30 QT: 389 QTc: 396 Interpretive Statements SINUS RHYTHM BORDERLINE R WAVE PROGRESSION, ANTERIOR LEADS BORDERLINE ST-T WAVE ABNORMALITY- ANTERIOR LEADS BASELINE ARTIFACT- I, II, III, AVR, AVL, AVF, V6 ABNORMAL ECG Electronically Signed On 11-11-2019 12:01:49 [employer] SE[employer]ER OPERATOR by Efrain Ring D.O.
[2019-11-11] MEDS: OXYBUTYNIN CHLORIDE 5 MG TABLET PO (18:47)
[2019-11-11] MEDS: FUROSEMIDE INJ 40 MG/4 ML VIAL 20 MG IV PUSH (19:16)
[2019-11-12] VITALS: PULSE 53
[2019-11-12] MEDS: OXYBUTYNIN CHLORIDE 5 MG TABLET PO ×2 (01:30→09:06)
[2019-11-12 04:00] VITALS: PULSE 49
[2019-11-12 06:00] VITALS: BP 135/57; PULSE 54; RESP 16; TEMP 36.8; O2SAT 93
[2019-11-12] MEDS: LEVOTHYROXINE SODIUM 50 MCG TABLET PO (06:29)
[2019-11-12 06:34] LABS: Hematocrit 32.5 % (37.0-47.0); Hemoglobin 11.1 g/dL (12.0-15.0); Mean Corpuscular HGB Conc 34.2 g/dl (32-36); Mean Corpuscular Hemoglobin 27.6 pg (26-34); Mean Corpuscular Volume 80.8 fl (80-100); Mean Platelet Volume 9.1 fl (7.4-10.4); Platelet Count Result 277 k/mm3 (150-375); Red Blood Count 4.02 M/mm3 (4.2-5.4); Red Cell Distribution Width 14.6 % (11.5-14.5); White Blood Count 7.2 K/mm3 (4.5-10.0)
[2019-11-12 06:51] LABS: Hemoglobin A1C 6.8 % (<5.7)
[2019-11-12 07:12] LABS: Alanine Aminotransferase 28 U/L (4-35); Albumin Level 3.3 g/dL (3.5-5.1); Alkaline Phosphatase 77 U/L (38-126); Aspartate Amino Transferase 36 U/L (14-36); Bilirubin,Total 0.8 mg/dL (0.2-1.3); Blood Urea Nitrogen 16 mg/dL (7-17); Calcium 8.7 mg/dL (8.4-10.2); Carbon Dioxide 27 mmol/L (22-30); Chloride 103 mmol/L (98-107); Estimated CRCL calculation 51 ml/min; Estimated Glomerular Filt Rate > 60; Glucose 91 mg/dL (65-105); Potassium 3.3 mmol/L (3.4-5.0); Sodium 143 mmol/L (137-145)
[2019-11-12 08:00] VITALS: PULSE 54
--- NOTE | 2019-11-12 08:46 | PM.IMPN ---
Progress Note: A&P Assessment and Plan (1) Dyspnea: Code(s): R06.00 - Dyspnea, unspecified Status: Acute (2) Pyelonephritis of right kidney: Code(s): N12 - Tubulo-interstitial nephritis, not specified as acute or chronic Status: Acute (3) Hypertension: Code(s): I10 - Essential (primary) hypertension Status: Acute (4) CAD (coronary artery disease): Code(s): I25.10 - Atherosclerotic heart disease of [place] coronary artery without angina pectoris Status: Acute (5) UPJ (ureteropelvic junction) obstruction: Code(s): N13.5 - Crossing vessel and stricture of ureter without hydronephrosis Status: Acute (6) Hypothyroid: Code(s): E03.9 - Hypothyroidism, unspecified Status: Acute (7) Hyperglycemia: Code(s): R73.9 - Hyperglycemia, unspecified Status: Acute (8) CASI (acute kidney injury): Code(s): N17.9 - Acute kidney failure, unspecified Status: Acute Additional Plan 11/11/19 -- Etiology unclear but related to mild fluid overload. BNP 4140. Positive fluid balance noted. Will stop IV fluids. Consider new onset AFib. Will check EKG and place on telemetry. She has a history of DVT and as such she warrants a CTA. If CTA of the chest is normal, will treat with Lasix. Check echocardiogram. Glucose was 209 on admission but could be stress response. Will add A1c with next blood draw. Will continue to follow along with you. May need medication adjustment given hypertension but this may be related also to fluid overload. Thank you so much for allowing me part of this patient's care. EKG showing NSR. Echo with EF 60-65% with diastolic dysfunction. VQ scan normal. Susggest SOB related to fluid overload. IV fluids stopped. Lasix IV once given. 11/12/19 -- symptomatically much improved. Her clinical condition should improve with time. Bowel sounds are stable. No dysrhythmias on telemetry. Okay to stop telemetry. Okay for discharge from medical standpoint. Patient should follow up with her primary care doctor at next scheduled appointment. Subjective Date/time seen: 11/12/19 08:46 Interval history: 69yo female here for pyelonephritis related to right UPJ obstruction and was consulted due to shortness of breath. Workup unrevealing. She was given Lasix last night possible fluid overload. She feels much better this. No back pain or abdominal pain. Eating normally. She is requesting discharge. Exam Narrative: Exam Narrative: AF 135/57 54 Gen - NARD sitting up in a chair Chest -distant but clear breath sounds. Normal respiratory rate CV -regular rate and rhythm. S1-S2. Telemetry showing occasional bradycardia Abd - Soft, NT/ND, Positive BS Ext - No pedal edema Psych -subdued mood Skin - Warm and dry Objective Data Vital Signs Vital Signs: Vital Signs - 24 hr 11/11/19 09:01 11/11/19 14:00 11/11/19 16:00 Temperature 97.9 F Pulse Rate 61 54 L 61 Respiratory Rate 18 Blood Pressure 158/68 H Pulse Oximetry 100 11/11/19 20:00 11/11/19 21:05 11/11/19 22:00 Temperature 98.1 F Pulse Rate 57 L 62 63 Respiratory Rate 18 Blood Pressure 133/64 Pulse Oximetry 92 11/12/19 00:00 11/12/19 04:00 11/12/19 06:00 Temperature 98.3 F Pulse Rate 53 L 49 L 54 L Respiratory Rate 16 Blood Pressure 135/57 L Pulse Oximetry 93 Intake/Output Intake/Output: Intake & Output 11/09/19 11/10/19 11/11/19 11/12/19 23:59 23:59 23:59 23:59 Intake Total 3600 3540 1070 450 Output Total 1035 1300 2300 2000 Balance 2565 2240 1230 1550 Meds/Results Medications: Active Medications Generic Name Dose Route Start Last Admin Trade Name Freq PRN Reason Stop Dose Admin Hydrocodone Bitart/Acetaminophen 1 tab 11/09/19 15:09 11/10/19 23:53 [place] 5-325 Mg PO 1 tab Q4H PRN Administration Pain Rated 4-6 Albuterol 2.5 mg 11/11/19 05:25 Albuterol Sulf Neb 2.5mg/0.5ml INHALATION Q6HRT
[2019-11-12 09:06] VITALS: PULSE 53
[2019-11-12] MEDS: DOCUSATE SODIUM 100 MG CAPSULE PO (09:06)
[2019-11-12] MEDS: METOPROLOL SUCCINATE EXT REL 50 MG TABCR PO (09:06)
[2019-11-12] MEDS: SIMVASTATIN 20 MG TABLET 80 MG PO (09:08)
[2019-11-12] MEDS: lisinopriL 10 MG TABLET PO (09:08)
--- NOTE | 2019-12-07 15:40 | P.DS_ITS ---
DS: Diagnosis Admitting Diagnosis Admitting Diagnosis: Tubulo-interstitial nephritis, not specified as acute or ch ronic. Discharge diagnosis Right ureteral stone. Right ureteropelvic junction obstruction. DS: Summary Time Spent with Patient Time attestation: Total time spent providing and/or coordinating discharge services: 15min. Discharge diagnosis Right ureteral stone. Right ureteropelvic junction obstruction. Patient is well known to our practice with the partial right UPJ obstruction. She was transferred from [facility] where she presented with a painful obstructing stone at the right ureteropelvic junction. She also reported some low-grade fever. Even the day following presentation she underwent cystoscopy with right ureteral stent placement. Her flank pain resolved and eventually her urine culture showed no growth. Postoperatively she did had some transient shortness of breath and consultation was undertaken with Dr. Yoshi Arredondo. With gentle diuresis this improved overnight. She was discharged the following day feeling well and with plans to see Dr. Jared salazar for evaluation of possible pyleloplasty. Exam Const: General: no acute distress Resp: Effort & Inspection: normal respiratory effort GI: Inspection: non-distended GI Palp: No abdominal tenderness and No Guarding due to palpation present (GI) Auscultation: normal bowel sounds Discharge Plan Discharge Attending physician on discharge: Shadia Zamarripa Consulting providers: Keyshawn Arredondo ; Yara Alarcon ; Vidal Milner ; Efrain Ring ; Tony Sierra V. ; Heath Gaona Discharging Clinician: Shadia Zamarripa Anticipated Discharge Date/Time: 11/12/19 10:59 Patient Disposition: Home, Self-Care Activity: as tolerated Diet: heart healthy Patient Instructions: Antibiotic Form, Cystoscopy (DC), Ureteral Stent Placement (DC) Stand Alone Forms: General Discharge Information Follow-up/Referrals: Susie,Chucky Victoria MD [Primary Care Provider] - Keep Reg. Scheduled Appt. Jared Salazar MD [Physician] - Keep Reg. Scheduled Appt. (December 01, 2019) Discharge Medications: New oxybutynin chloride 5 mg Tablet 5 mg PO TID PRN (Reason: Bladder Spasm) Qty: 30 RF: 2 cefdinir 300 mg Capsule 300 mg PO Q12H Qty: 20 RF: 0 Continued metoprolol succinate 50 mg tablet extended release 24 hr 50 mg PO BID RF: 0 clopidogrel 75 mg tablet 75 mg QMWFSU RF: 0 simvastatin 80 mg tablet 80 mg PO DAILY RF: 0 levothyroxine 50 mcg tablet 50 mcg PO DAILY RF: 0 lisinopril 10 mg tablet 10 mg PO BID RF: 0 Date of admission: 11/08/19 17:38 Primary Care Provider: Susie,Chucky Victoria Admitting Provider: Alexis Fried Discharge Date/Time: 11/12/19 12:10 Attending physician on admission: Shadia Zamarripa
== END 2019-11-12 12:10 | disposition home or self-care (01) | DRG 661 ==
PROVIDERS: Internal Medicine; Urology; Admitting Provider Urology; PCP Pediatrics; Visit Provider Urology
PROC: 0T768DZ Dilation of Right Ureter with Intraluminal Device, Via Natural or Artificial Opening Endoscopic (ICD-10-PCS; CPT 52352; principal; 2019-11-09 15:30)
DX: N12 Tubulo-interstitial nephritis, not specified as acute or chronic (principal); N13.5 Crossing vessel and stricture of ureter without hydronephrosis; I25.10 Atherosclerotic heart disease of native coronary artery without angina pectoris; E03.9 Hypothyroidism, unspecified; N17.9 Acute kidney failure, unspecified; E87.70 Fluid overload, unspecified; Z86.718 Personal history of other venous thrombosis and embolism; K21.9 Gastro-esophageal reflux disease without esophagitis; E78.5 Hyperlipidemia, unspecified; I10 Essential (primary) hypertension; Z87.442 Personal history of urinary calculi; Z87.891 Personal history of nicotine dependence; R73.9 Hyperglycemia, unspecified
CPT/HCPCS: 36415; 71045; 74420; 78582; 80048; 80053; 81001; 83036; 83880; 84443; 85025; 85027; 87086; 93005; 93306; 93970; 94640; A9270; A9540; A9558; C1769; C1887; C2617; J0131; J0696; J1100; J1940; J2250; J2270; J2405; J2704; J3010; J7042; J7120; Q9966

== ENCOUNTER 2020-05-21 13:05 | Outpatient (CLI) | payer MEDICARE, SELFPAY ==
--- NOTE | ~2020-05-21 | NM_ITS ---
EXAMINATION: NM lasix renal scan DATE: 05/21/2020 14:21 INDICATION: Hydronephrosis with renal and ureteral calculus obstruction. TECHNIQUE: 7.9 mCi Tc-99m MAG3 was administered IV. 40 mg furosemide was administered IV immediately afterward. The patient was scanned in the supine position. A posterior abdominal radionuclide angiog yecenia was obtained. A subsequent time course of static images of the kidneys, ureters, and bladder was obtained. COMPARISON: CT abdomen and pelvis 11/08/2019, Lasix renal scan 07/27/2017 FINDINGS: The posterior abdominal radionuclide angiogram and sequential static images show right-side d hydronephrosis. Peak renal parenchymal uptake was 4 min in right kidney and 5 min in left kidney (n ormal peak 3-5 minutes). The relative early renal uptake was 45% on the right and 55% on the left (< 40% is abnormal). T1/2 for clearance of activity from the right kidney and proximal collecting system was >>20 minutes. T1/2 for clearance of activity from the left kidney and proximal collecting system was >>20 minutes. Notes on interpretation: T1/2 <10 minutes is normal, 10-15 minutes is low grade obstruction of questi onable clinical significance, 15-20 minutes is partial obstruction that is likely clinically signific ant, >20 minutes is high grade obstruction. Note that false positives may be seen with supine positio taylor, dehydration, severely dilated nonobstructed kidney, atonic collecting system, poor renal functi on, and chronic furosemide use. IMPRESSION: 1. Symmetric kidney function. 2. Delayed contrast clearance from both kidneys, which may be seen with decreased kidney function or dehydration. Specificity for evaluation for right ureteral obstruction is poor. Reviewed, dictated and finalized at location A. IMPRESSION: 1. Symmetric kidney function. 2. Delayed contrast clearance from both kidneys, which may be seen with decrea sed kidney function or dehydration. Specificity for evaluation for right ureter al obstruction is poor.
== END 2020-05-21 13:06 | disposition home or self-care (01) ==
PROVIDERS: PCP Pediatrics; Visit Provider Urology
DX: N13.2 Hydronephrosis with renal and ureteral calculous obstruction (principal)
CPT/HCPCS: 78708; A9562; J1940

== ENCOUNTER 2023-12-28 17:31 | Emergency (ER) | payer MEDICARE, SELFPAY ==
[2023-12-28] VITALS (7 sets, daily range): BP systolic 85–104; BP diastolic 56–68; PULSE 63–82; RESP 16–17; TEMP 36.6; O2SAT 97–100
--- NOTE | ~2023-12-28 | CT_ITS ---
EXAMINATION: CT lumbar spine wo con DATE: 12/28/2023 19:36 INDICATION: back pain . TECHNIQUE: Computed tomography (CT) of the lumbar spine was performed without intravenous contrast. A utomated exposure control and iterative reconstruction technique were employed. The dose-length produ ct was 367.08 mGy-cm. COMPARISON: X-ray right hip and pelvis same date; CT abdomen pelvis 10/13/2018, report only. FINDINGS: Decreased mineralization. Lumbar scoliosis. 5 nonrib-bearing lumbar-type vertebral bodies. Pedicles intact. 2 mm anterolisthesis at L4-5. Mild anterior wedge deformity at T12 and L4. Multileve l degenerative disc disease, severe at T11-T12, T12-L1, and L5-S1. Multilevel severe facet arthropath y. Chronic appearing H-shaped sacral fracture. IMPRESSION: Severe osteopenia. Mild anterior wedge deformities at T12 and L4 of uncertain age. Correlate for pain/tenderness. Chronic appearing sacral fracture. Reviewed, dictated and finalized at location K. IMPRESSION: Severe osteopenia. Mild anterior wedge deformities at T12 and L4 of uncertain age. Correlate for p ain/tenderness. Chronic appearing sacral fracture.
--- NOTE | ~2023-12-28 | XR_ITS ---
EXAM: XR hip RT 2V w AP pelvis DATE: 12/28/2023 19:29 HISTORY: pain . COMPARISON: None available. FINDINGS: Decreased mineralization. No fracture or dislocation. No lytic or blastic lesion. Lumbar s coliosis. Severe lumbar degenerative disc disease. Moderate degenerative changes in the bilateral hip s, SI joints, and pubic symphysis. No erosion or periosteal change. Soft tissues within normal limits . IMPRESSION: No acute osseous finding in the pelvis or right hip. Reviewed, dictated and finalized at location K.
[2023-12-28] MEDS: HYDROmorphone HCL INJ (*CRX) 1 MG/ML SYR 0.5 MG IM (19:48)
[2023-12-28] MEDS: dexAMETHasone SOD PHOS INJ 10 MG/ML 1 ML VIAL IM (19:49)
[2023-12-28] MEDS: KETOROLAC 30 MG/ML VIAL (*BKC) 15 MG IM (19:50)
--- NOTE | 2023-12-28 20:13 | ED.GENADULT ---
HPI - General Adult General Chief complaint: Extremity Injury, Lower Stated complaint: right leg pain Time Seen by Provider: 12/28/23 19:02 History of Present Illness HPI narrative: Patient 73-year-old female presents emergency department chief complaint of right-sided sciatica pain. Patient reports he has been having pain since September reports she saw orthopedics and saw interventional pain management. The patient has had injections and reports that she has had continual pain since the last injection. The patient reports she has pain with walking denies numbness or tingling the patient was told by her providers that she should be x-ray to evaluate for possible fracture. Related Data Home Medications Medication Instructions Recorded Confirmed clopidogrel 75 mg tablet 75 mg QMWFSU 11/08/19 01/01/22 levothyroxine 50 mcg tablet 50 mcg PO DAILY 11/08/19 01/01/22 lisinopril 10 mg tablet 10 mg PO BID 11/08/19 01/01/22 metoprolol succinate 50 mg 50 mg PO BID 11/08/19 01/01/22 tablet,extended release 24 hr simvastatin 80 mg tablet 80 mg PO DAILY 11/08/19 01/01/22 Allergies Allergy/AdvReac Type Severity Reaction Status Date / Time Penicillins Allergy Unknown UNKNOWN Verified 12/28/23 17:33 CONTRAST DYE Allergy Mild SEVERE Uncoded 12/28/23 17:33 NAUSEA Review of Systems Review of Systems: A 10 system review of systems was completed on the patient and is negative except for what is stated in the HPI. Nursing and ancillary documentation was reviewed. [facility] Past Medical History Medical History CAD (coronary artery disease) [place] with stent x2 in 1995 and stentx1 in 2002 DVT (deep venous thrombosis) GERD (gastroesophageal reflux disease) Hyperlipidemia Hypertension Hypothyroid Inflammatory arthritis Nephrolithiasis Rt 1996 and in 2006 Surgical History Surgical History H/O Spinal surgery 1989 for herniated discs History of appendectomy History of bilateral tubal ligation 1977 Stented coronary artery Family History Family History Sibling Leukemia Sibling Colon cancer Social History Social History Social History: Patient denies alcohol or drug use. She smoked a pack a day for 40 years but quit in 2009. She lives at home with her . They do have a dog. Patient is a full code. She nominated her to be the individual would make medical decisions for her if she is unable. Smoking packs per day: 1 Smoking cigarettes per day: 20.0 Smoking status: Former smoker Tobacco type: cigarettes Alcohol intake: never Substance use: never Gender identity (if verbalized by the patient): Female Spiritual care concerns: No Agree to blood products: No Exam Narrative: GENERAL: Well-appearing, well-nourished, and in no acute distress. HEAD: Normocephalic, atraumatic. EYES: PERRLA and EOMI. ENT: Nares clear, no rhinorrhea or epistaxis. Mucous membranes moist. NECK: Supple. CHEST: Clear to auscultation. No respiratory distress. HEART: Regular rate and rhythm. No murmur heard. Normal peripheral pulses. ABDOMEN: Soft, nontender, nondistended, normal active bowel sounds. EXTREMITIES: Normal range of motion. No edema. SKIN: Warm, dry, no rash. NEURO: No focal deficits. Alert and oriented x3. He patient ambulates with a slow gait there is tenderness to palpation in the right SI joint the PSYCH: Normal mood and affect. Course Vital Signs Vital signs: Vital Signs Temperature 36.6 C 12/28/23 17:42 Pulse Rate 69 12/28/23 17:42 Respiratory Rate 16 12/28/23 17:42 Blood Pressure 104/59 L 12/28/23 17:42 Pulse Oximetry 100 12/28/23 17:42 Oxygen Delivery Room Air 12/28/23 17:42 Temperature 36.6 C 12/28/23 1
== END 2023-12-28 21:33 | disposition home or self-care (01) ==
PROVIDERS: Emergency Provider Emergency Medicine; PCP Pediatrics
DX: M54.31 Sciatica, right side (principal); I25.10 Atherosclerotic heart disease of native coronary artery without angina pectoris; Z86.718 Personal history of other venous thrombosis and embolism; K21.9 Gastro-esophageal reflux disease without esophagitis; E78.5 Hyperlipidemia, unspecified; I10 Essential (primary) hypertension; E03.9 Hypothyroidism, unspecified; Z87.442 Personal history of urinary calculi
CPT/HCPCS: 72131; 73502; 96372; 99284; A9270; J1100; J1170; J1885

== ENCOUNTER 2024-03-04 07:59 | Outpatient (CLI) | payer MEDICARE, SELFPAY ==
--- NOTE | ~2024-03-04 | MR_ITS ---
MRI of the lumbar spine Clinical History: Radiculopathy Technique: Axial T2-weighted images, and sagittal T1-weighted, T2-weighted, and T2 fat-sat images wer e acquired. Findings: There is probable subacute minimal compression fracture L3, with T1 hypointense fracture li ne with, but minimal marrow edema. There is mild chronic compression deformity of L4. There is 5 mm a nterolisthesis of L4 over L5. At L1-L2, there is minimal disc bulge. There is moderate facet arthropathy. No central canal stenosis . There is moderate right neural foraminal narrowing. Left neural foramen preserved. At L2-L3, there is mild disc bulge with moderate to advanced facet arthropathy. No sourav central gracie l stenosis. There is severe right neural foraminal narrowing, and mild to moderate left neural forami nal narrowing. At L3-L4, there is diffuse disc bulge and severe facet arthropathy. No spinal canal stenosis. There i s mild bilateral neural foraminal narrowing. At L4-L5, there is advanced degenerative disc narrowing. There is minimal disc bulge with severe face t arthropathy and probable fusion across the facet joints. No spinal canal stenosis. There is minimal bilateral neural foraminal narrowing. At L5-S1, there is minimal disc bulge and moderate facet arthropathy. No central canal stenosis. Ther e is moderate to severe left neural foraminal narrowing. Right neural foramen preserved. Paravertebral soft tissues are unremarkable. Impression: Possible subacute, minimal compression fracture T3, as detailed above. Mild chronic compression deformity of L4. 5 mm anterolisthesis of L4 over L5. Moderate degenerative spondylosis, with neural foraminal narrowing at multiple levels, worst at L2-L3 and L5-S1. Please see details above. Reviewed, dictated and finalized at [facility]. Impression: Possible subacute, minimal compression fracture T3, as detailed above. Mild chronic compression deformity of L4. 5 mm anterolisthesis of L4 over L5. Moderate degenerative spondylosis, with neural foraminal narrowing at multiple levels, worst at L2-L3 and L5-S1. Please see details above.
== END 2024-03-04 08:00 ==
LOC: GOSHIMG 07:59
PROVIDERS: PCP Pediatrics; Visit Provider Pain Medicine Pain Medicine
DX: M47.26 Other spondylosis with radiculopathy, lumbar region (principal)
CPT/HCPCS: 72148